=== PATIENT | male | born 1980 | race Caucasian/White ===

== ENCOUNTER → 2023-07-20 11:27 | Outpatient (BNVA) | payer OTHER, SELFPAY | PROVIDERS: Family Provider Family Medicine; PCP Family Medicine; Visit Provider Family Medicine | DX: Z51.81 Encounter for therapeutic drug level monitoring (principal); E03.9 Hypothyroidism, unspecified; E53.8 Deficiency of other specified B group vitamins; E55.9 Vitamin D deficiency, unspecified; Z13.220 Encounter for screening for lipoid disorders; Z13.1 Encounter for screening for diabetes mellitus; R53.81 Other malaise; R53.83 Other fatigue; R07.9 Chest pain, unspecified; K21.9 Gastro-esophageal reflux disease without esophagitis | CPT/HCPCS: 80053; 80061; 82306; 82607; 83036; 84403; 84443; 85025 ==

== ENCOUNTER 2023-08-03 07:24 | Outpatient (CLI) | payer OTHER, SELFPAY ==
--- NOTE | 2023-08-03 | ECG_ITS ---
[facility] Test Date: 2023-08-03 Pat Name: Noe Buckner Department: Room: Gender: Male [place] Selector: Che RodríguezChristofer : 1980 Requested By: Darnell Strong Order Number: [id number] Rice MD: Heladio Massey M.D. Interpretive Statements NAME OF STUDY: EXERCISE SESTAMIBI STRESS TEST INDICATION: [Chest Pain, ] EXERCISE DATA: The patient was exercised by Tyler protocol. Baseline heart rate was 67 beats per minute. Baseline blood pressure was 136/76 millimeters of mercury. Target heart rate was 150 beats per minute. Maximum heart rate achieved was 167 which was 111% of the target heart rate. Maximum blood pressure was 187/78 millimeters of mercury. Total exercise time was 11 minutes. Maximum METs achieved was 13.5. The reason for ending the test was completion of protocol. The patient complained of shortness of breath during the stress test, which then resolved at the end of the test. ELECTROCARDIOGRAM: BASELINE: Showed sinus rhythm, normal axis, no significant ST-T changes at the baseline noted. [] EXERCISE: At the peak exercise level, [] No significant ST-T changes suggestive of ischemia noted. [] RECOVERY: During the recovery period, heart rate dropped appropriately. No significant ST-T changes in the recovery suggestive of ischemia noted. [] CONCLUSION: 1. Exercise capacity is excellent 2. Heart rate response was appropriate 3. Blood pressure response was appropriate 4. Symptoms not suggestive of ischemia. 5. Electrocardiogram portion of the stress test was not suggestive of ischemia. 6. Nuclear scan will be documented separately. Electronically Signed On 08-14-2023 12:44:45 [employer] by Heladio Massey M.D. [id number]
[2023-08-03 07:28] VITALS: BMI 30.1
--- NOTE | 2023-08-03 07:28 | NMCV_ITS ---
NM heidy perf SPECT r/s* 19663 Noe Buckner Age: 42 Gender: M : 1980 Exam Date: 08/03/2023 08:10 Ordering Phys: Darnell Sol MD Technologist: SIA Nugent Exam Location: [facility] Indications: CHEST PAIN STRESS TEST Please see separate stress test report in [facility] for full findings IMAGE PROTOCOL Rest/Stress 1 Exercise Day Radiopharmaceutical Dose (mCi) Administration Site Administered by Rest: Tc-99m 10.4 IV SIA Hernandez Sestamibi Stress:Tc-99m 32.9 IV SIA Hernandez Sestamiruperto Rest: 03-Aug-2023 60 Discovery 630 Stress: 03-Aug-2023 15 Discovery 630 Radiopharmaceutical was injected at 89 % maximum heart rate. Images obtained in supine and prone position. SPECT RESULTS Technical Quality: Excellent Raw Data Analysis: Normal Image Corrections: No attenuation or motion correction applied Summed Stress Score: 0 Summed Rest Score: 0 Summed Difference Score: 0 PERFUSION FINDINGS SPECT images demonstrate homogeneous tracer distribution throughout the myocardium. FUNCTIONAL RESULTS (calculated via Gated SPECT) Stress Image LV EF (%): 66 Stress EDV (mL):97 TID: 0.81 Stress ESV (mL):33 FUNCTIONAL FINDINGS: There is normal left ventricular systolic function. IMPRESSIONS 1. Normal myocardial perfusion imaging with no evidence of ischemia 2. LV systolic function is normal Heladio Massey MD (Electronically Signed) Final Date: 03 August 2023 10:37 S
[2023-08-03 09:09] VITALS: BP 142/89; PULSE 97
== END 2023-08-03 07:25 | disposition home or self-care (01) ==
PROVIDERS: PCP Family Medicine; Visit Provider Family Medicine
DX: R07.9 Chest pain, unspecified (principal)
CPT/HCPCS: 36415; 78452; 93017; A9500

== ENCOUNTER → 2024-03-06 10:11 | Outpatient (BNVA) | payer OTHER, SELFPAY | PROVIDERS: PCP Family Medicine; Visit Provider Family Medicine | DX: Z13.220 Encounter for screening for lipoid disorders (principal); R79.89 Other specified abnormal findings of blood chemistry; R74.01 Elevation of levels of liver transaminase levels | CPT/HCPCS: 80048; 80061; 86803; 87340 ==

== ENCOUNTER → 2025-03-20 10:51 | Outpatient (BNVA) | payer OTHER, SELFPAY | PROVIDERS: PCP Family Medicine; Visit Provider Family Medicine | DX: Z00.00 Encounter for general adult medical examination without abnormal findings (principal); R53.81 Other malaise; R53.83 Other fatigue; E78.5 Hyperlipidemia, unspecified | CPT/HCPCS: 80053; 80061; 82306; 82607; 83036; 84403; 84443; 85025 ==